=== PATIENT | female | born 1950 | race Caucasian/White ===

== ENCOUNTER 2018-10-12 15:47 | Emergency (ER) | payer BC ==
[2018-10-12 16:43] VITALS: BP 139/92
--- NOTE | 2018-10-12 17:43 | UC ---
Respiratory Complaint HPI - HPI Summary HPI Summary: 2 WEEKS OF COUGH AND CONGESTION. FEELS SHE IS GETTING SLOWLY BETTER BUT CONCERNED ABOUT HER LUNGS SO CAME IN. NO FEVER, N/V. - History of Current Complaint Chief Complaint: UCRespiratory Stated Complaint: CONGESTED Time Seen by Provider: 10/12/18 17:40 Hx Obtained From: Patient Onset/Duration: Gradual Onset, Lasting Weeks, Still Present - BUT BETTER Timing: Constant Severity Initially: Moderate Severity Currently: Moderate Pain Intensity: 0 Pain Scale Used: 0-10 Numeric Character: Cough: Productive Aggravating Factors: Nothing Alleviating Factors: Nothing Associated Signs And Symptoms: Positive: URI, Nasal Congestion. Negative: Dyspnea, Fever, Chills, Wheezing - Allergies/Home Medications Allergies/Adverse Reactions: Allergies Allergy/AdvReac Type Severity Reaction Status Date / Time No Known Allergies Allergy Verified 10/12/18 16:43 PMH/Surg Hx/FS Hx/Imm Hx Previously Healthy: Yes - Surgical History Surgical History: Yes Surgery Procedure, Year, and Place: HYSTERECTOMY-1996, gallbladder, appendix - Family History Known Family History: Positive: Cardiac Disease - father very late in life he is currently 102 years old, Hypertension - father Negative: Diabetes - Social History Alcohol Use: Rare Substance Use Type: None Smoking Status (MU): Never Smoked Tobacco Review of Systems All Other Systems Reviewed And Are Negative: Yes Constitutional: Positive: Negative ENT: Positive: Nasal Discharge Respiratory: Positive: Cough Cardiovascular: Positive: Negative Gastrointestinal: Positive: Negative Physical Exam Triage Information Reviewed: Yes Appearance: Well-Appearing, No Pain Distress, Well-Nourished Vital Signs: Initial Vital Signs Temp 97.7 F 10/12/18 16:38 Pulse 111 10/12/18 16:38 Resp 18 10/12/18 16:38 BP 139/92 10/12/18 16:38 Pulse Ox 97 10/12/18 16:38 Vital Signs Reviewed: Yes Eyes: Positive: Conjunctiva Clear ENT: Positive: Hearing grossly normal, Pharynx normal, TMs normal Neck: Positive: Supple, Nontender, No Lymphadenopathy Respiratory Exam: Normal Cardiovascular Exam: Normal Abdomen Description: Positive: Soft Musculoskeletal: Positive: No Edema Neurological: Positive: Alert Psychological: Positive: Age Appropriate Behavior Skin: Negative: Rashes Respiratory Course/Dx - Course Course Of Treatment: LIKELY VIRAL. PT STATES SHE IS GETTING BETTER BUT JUST WANTED TO BE SURE HER LUNGS SOUNDED CLEAR. NO ACUTE INTERVENTION INDICATED. - Differential Dx/Diagnosis Provider Diagnosis: Acute bronchitis Discharge - Sign-Out/Discharge Documenting (check all that apply): Patient Departure All imaging exams completed and their final reports reviewed: No Studies - Discharge Plan Condition: Stable Disposition: HOME Patient Education Materials: Acute Bronchitis (ED) Referrals: Curly Hewitt MD [Primary Care Provider] - If Needed Additional Instructions: YOUR SYMPTOMS ARE LIKELY VIRALLY MEDIATED AND SHOULD CONTINUE TO IMPROVE ON THEIR OWN WITH TIME. NO INDICATION FOR ANTIBIOTICS AT PRESENT. REST, HYDRATE, OTC MEDS NEEDED. SEEK FOLLOW-UP IF YOU ARE NOT CONTINUING TO IMPROVE EXPECTED. - Billing Disposition and Condition Condition: STABLE Disposition: Home
== END 2018-10-12 18:04 | disposition home or self-care (01) ==
LOC: UCEAST 15:47
DX: J20.9 Acute bronchitis, unspecified (principal)
CPT/HCPCS: 99211; G0463